=== PATIENT | female | born 1935 | race Caucasian/White ===

== ENCOUNTER → 2017-05-25 | Day surgery (SDC) | payer OTHER ==
[2017-05-19 08:13] VITALS: BMI 23.0
[~2017-05-25] VITALS: Ht 160 cm; Wt 60.5 kg
[~2017-05-25] MED LIST: AMIO200T4 PO; ASPCH81X PO; AZEL0.15 NAE; CHOL1000 PO; HYDR-4717 PO; HYDR25TA4 PO; LEVO50TA6 PO; LIDOCAINE HCL 2% 2 ML VIAL (20MG/ML) ONE; LRS10 PO; METO25TA56 PO; NTRGSL/4 UT; OFLO0.3D4 OT; POTA10CA28 PO; PRLSR20 PO; PROPOFOL IV EMULSION 10 MG/ML 20 ML VIAL IV ONE; PRVC/40 PO; SODIUM CHLORIDE 0.9% 500ML 500 ML IV ONE; SUCR5SUS PO
[2017-05-25 08:36] VITALS: Ht 160 cm; Wt 60.5 kg
--- NOTE | 2017-05-25 08:40 | Endo History and Physical ---
History & Physical Date of Service: May 25, 2017. Chief Complaint: Referring Physician: History of Present Illness Patient with chronic GERD on meds, here for EGD with Lechuga PH testing Past Medical History Atrial Fibrillation, Reflux, High Cholesterol, Heart Disease, Syncopal Episodes , Hypertension, Thyroid Disease, Kidney Disease Past Surgical History Hx Cardiac Surgery: Yes (HEART CATH/NO STENTS) Hx Internal Defibrillator: No Hx Pacemaker: No Hx Abdominal Surgery: Yes (HYSTERECTOMY ) Hx of Implantable Prosthesis: No Hx Post-Op Nausea and Vomiting: No Hx Cancer Surgery: No Hx Thoracic Surgery: No Hx Orthopedic: Yes (LUMBAR FUSION) Hx Urinary Tract Surgery: Yes (BLADDER TACK) Family History Esophogeal CA Social History Smoking Status: Former Smoker Hx Substance Use: No Hx Alcohol Use: Yes (RARE) Allergies Coded Allergies: Aminoglycosides (Verified Allergy, Mild, RASH, 05/19/17) Bacitracin (Verified Allergy, Mild, RASH, 05/19/17) Lisinopril (Verified Allergy, Mild, COUGH, 05/19/17) Neomycin (Verified Allergy, Mild, RASH, 05/19/17) Polymyxin B (Verified Allergy, Mild, RASH, 05/19/17) Sulfa Drugs (Verified Allergy, Unknown, RASH, 05/19/17) Current Medications Reported Home Medications Medications Dose Route/Sig Max Daily Dose Days Date Category Nitrostat (Nitroglycerin) 0.4 Mg Tab 0.4 Mg UT PRN PRN 05/19/17 Reported Astepro (Azelastine Hcl) 0.15 % Spr 2 [place] JOVANA DAILY PRN 05/19/17 Reported Floxin Otic (Ofloxacin (Otic)) 0.3 % Delvin 2 Drops OT BID PRN 05/19/17 Reported Carafate (Sucralfate) 1 Gm/10 Ml Susp 1 Gm PO QID PRN 05/19/17 Reported Vitamin D3 (Cholecalciferol) 1,000 Unit Tab 1 Tab PO QAM 05/19/17 Reported Micro-K Ext Rel (Potassium Chloride) 10 Meq Capcr 10 Meq PO BID 05/19/17 Reported Prilosec (Omeprazole) 20 Mg Capcr 20 Mg PO BID 05/19/17 Reported Levothyroxine Sodium 50 Mcg Tab 1 Tab PO QAM 05/19/17 Reported Hctz (Hydrochlorothiazide) 25 Mg Tab 25 Mg PO QAM 05/19/17 Reported Pravastatin Sodium (Pravastatin Sod) 40 Mg Tab 1 Tab PO QPM 05/19/17 Reported Lopressor (Metoprolol Tartrate) 25 Mg Tab 25 Mg PO BID 05/19/17 Reported Aspirin Chewable (Aspirin) 81 Mg Chew 81 Mg PO QAM 05/19/17 Reported Apresoline (Hydralazine Hcl) 50 Mg Tab 50 Mg PO BID 05/19/17 Reported Baclofen 10 Mg Tab 5 Mg PO BID 05/19/17 Reported Cordarone (Amiodarone Hcl) 200 Mg Tab 100 Mg PO QAM 05/19/17 Reported Vital Signs Weight (Kilograms): 60.45 Height (Feet): 5 Height (Inches): 3 Date Time Temp Pulse Resp B/P (MAP) Pulse Ox O2 Delivery O2 Flow Rate FiO2 05/25/17 08:36 36.0 57 20 153/85 (107) 97 Room Air Physical Exam General Appearance: no apparent distress Respiratory/Chest: Respiratory effort: no dyspnea, good air movement Cardiovascular: Heart Auscultation: RRR Abdomen: Inspection & Palpation: soft, non-distended, no tenderness, guarding & rebound Assessment and Plan Patient is for EGD with Lechuga. Patient was explained in details regarding the risk, benefit and alternatives and agreed.
--- NOTE | 2017-05-25 09:20 | Discharge Instructions ---
Endoscopy Patient Instructions Date / Procedure(s) Performed May 25, 2017. EGD Allergy Information Coded Allergies: Aminoglycosides (Verified Allergy, Mild, RASH, 05/19/17) Bacitracin (Verified Allergy, Mild, RASH, 05/19/17) Lisinopril (Verified Allergy, Mild, COUGH, 05/19/17) Neomycin (Verified Allergy, Mild, RASH, 05/19/17) Polymyxin B (Verified Allergy, Mild, RASH, 05/19/17) Sulfa Drugs (Verified Allergy, Unknown, RASH, 05/19/17) Discharge Date / Findings May 25, 2017. EGD showed normal esophagus, stomach and duodenum. Lechuga PH capsule successfully placed. Medication Instructions Reported Home Medications Medications Dose Route/Sig Max Daily Dose Days Date Category Nitrostat (Nitroglycerin) 0.4 Mg Tab 0.4 Mg UT PRN PRN 05/19/17 Reported Astepro (Azelastine Hcl) 0.15 % Spr 2 [place] JOVANA DAILY PRN 05/19/17 Reported Floxin Otic (Ofloxacin (Otic)) 0.3 % Delvin 2 Drops OT BID PRN 05/19/17 Reported Carafate (Sucralfate) 1 Gm/10 Ml Susp 1 Gm PO QID PRN 05/19/17 Reported Vitamin D3 (Cholecalciferol) 1,000 Unit Tab 1 Tab PO QAM 05/19/17 Reported Micro-K Ext Rel (Potassium Chloride) 10 Meq Capcr 10 Meq PO BID 05/19/17 Reported Prilosec (Omeprazole) 20 Mg Capcr 20 Mg PO BID 05/19/17 Reported Levothyroxine Sodium 50 Mcg Tab 1 Tab PO QAM 05/19/17 Reported Hctz (Hydrochlorothiazide) 25 Mg Tab 25 Mg PO QAM 05/19/17 Reported Pravastatin Sodium (Pravastatin Sod) 40 Mg Tab 1 Tab PO QPM 05/19/17 Reported Lopressor (Metoprolol Tartrate) 25 Mg Tab 25 Mg PO BID 05/19/17 Reported Aspirin Chewable (Aspirin) 81 Mg Chew 81 Mg PO QAM 05/19/17 Reported Apresoline (Hydralazine Hcl) 50 Mg Tab 50 Mg PO BID 05/19/17 Reported Baclofen 10 Mg Tab 5 Mg PO BID 05/19/17 Reported Cordarone (Amiodarone Hcl) 200 Mg Tab 100 Mg PO QAM 05/19/17 Reported Provider Instructions Activity Restrictions - No exercising or heavy lifting for 24 hours. - Do not drink alcohol the day of the procedure. - Do not drive a car or operate machinery until the day after the procedure. - Do not make any important decisions or sign important papers in 24 hours after the procedure. Following Day: - Return to full activity which may include returning to work/school. Diet Start your diet with liquids and light foods (jello, soup, juice, toast). Then eat your usual diet if not nauseated. Treatment For Common After Affects For mild abdominal pain, bloating, or excessive gas: - Rest - Eat lightly - Lie on right side Follow-Up Information Return the [employer] PH sales manager prearranged funerals as instructed. Follow-up with DR. SONNY ALONSO as scheduled Anesthesia Information What You Should Know You have had a procedure that required some medicine to reduce anxiety and discomfort. This treatment is called moderate sedation. After receiving the treatment, you may be sleepy, but you will be able to breathe on your own. The effects of the treatment may last for several hours. Follow these instructions along with Activity/Diet recommendations noted above: * Do NOT do anything where dizziness or clumsiness would be dangerous. * Rest quietly at home today, then you can be up and about tomorrow. * Have a responsible person stay with you the rest of today. * You may have had an I.V. today. If so, you may take the dressing off later today. Recommendations Call your doctor if: * Trouble breathing * Continuous vomiting for more than 24 hours * Temperature above 101 degrees * Severe abdominal pain or bloating * Pain not relieved by pain medicine ordered * There is increased drainage or redness from any incision * A large amount of rectal bleeding greater than 2-3 tablespoons. (If you had a polyp/s removed or have hemorrhoids, a small amount of blood - from the rectum is to be expected.) * You have any unanswered questions or concerns. IN THE EVENT OF A SERIOUS EMERGENCY, GO TO THE NEAREST EMERGENCY ROOM Your discharge instructions were prepared by provider Gordy Hewitt. Patient Instructions Signature Page Cathie Lozano Patient (or Guardian) Signature/Date: I have read and understand the instructions given to me by my caregivers. Caregiver/RN/Doctor Signature/Date: The above-named patient and/or guardian has received patient instructions on this date. + Original Patient Signature Page (only) stays with chart. Please make copy for patient.
--- NOTE | 2017-05-25 09:28 | GI REPORT ---
Procedure Date: 05/25/2017 8:56 AM Procedure: Upper GI endoscopy Indications: Heartburn, Follow-up of gastro-esophageal reflux disease Medicines: Monitored Anesthesia Care Complications: No immediate complications. Estimated Blood Loss: Estimated blood loss: none. Procedure: Pre-Anesthesia Assessment: - Prior to the procedure, a History and Physical was performed, and patient medications and allergies were reviewed. The patient is competent. The risks and benefits of the procedure and the sedation options and risks were discussed with the patient. All questions were answered and informed consent was obtained. Patient identification and proposed procedure were verified by the physician and the nurse in the procedure room. Mental Status Examination: alert and oriented. Airway Examination: normal oropharyngeal airway and neck mobility. Respiratory Examination: clear to auscultation. CV Examination: normal. ASA Grade Assessment: II - A patient with mild systemic disease. After reviewing the risks and benefits, the patient was deemed in satisfactory condition to undergo the procedure. The anesthesia plan was to use monitored anesthesia care (MAC). Immediately prior to administration of medications, the patient was re-assessed for adequacy to receive sedatives. The heart rate, respiratory rate, oxygen saturations, blood pressure, adequacy of pulmonary ventilation, and response to care were monitored throughout the procedure. The physical status of the patient was re-assessed after the procedure. After obtaining informed consent, the endoscope was passed under direct vision. Throughout the procedure, the patient's blood pressure, pulse, and oxygen saturations were monitored continuously. The Scope was introduced through the mouth, and advanced to the second part of duodenum. The upper GI endoscopy was accomplished without difficulty. The patient tolerated the procedure well. Findings: The examined esophagus was normal. The MÉNDEZ capsule with delivery system was introduced through the mouth and advanced into the esophagus, such that the MÉNDEZ pH capsule was positioned 34 cm from the incisors, which was 6 cm proximal to the EG junction. Suction was applied to the well of the MÉNDEZ pH capsule to suck in the adjacent mucosa of the esophagus using the external vacuum pump set at a minimum vacuum pressure of 550 mmHg for 30 seconds. The MÉNDEZ pH capsule was then deployed by depressing the plunger on top of the handle to advance the locking pin into the mucosa, thereby attaching the capsule to the esophagus. The plunger was then rotated a quarter turn clockwise to release the capsule from the delivery system. The delivery system was then withdrawn. Endoscopy was utilized for probe placement and diagnostic evaluation. (Study done on PPI meds). The entire examined stomach was normal. The duodenal bulb and 2nd part of the duodenum were normal. Impression: - Normal esophagus. - The MÉNDEZ pH capsule was positioned 34 cm from the naris, which was 6 cm proximal to the EG junction. - Normal stomach. - Normal duodenal bulb and 2nd part of the duodenum. - No specimens collected. Recommendation: - Discharge patient to home. - Continue present medications. - Return the [facility] PH reciever to GI lab as previously instructed. - Return to GI clinic as previously scheduled. Gordy Hewitt MD 05/25/2017 9:27:43 AM This report has been signed electronically. Note Initiated On: 05/25/2017 8:56 AM I attest to the content of the Intraoperative Record and orders documented therein, exceptions below
[2017-05-25 09:54] VITALS: BP 158/87; PULSE 58; O2SAT 98
--- NOTE | 2017-05-25 10:12 | Anesthesiology Progress Note ---
Anesthesia Post Op Note Date & Time May 25, 2017 at 10:12 Vital Signs Pain Intensity: 0 Vital Signs Past 12 Hours Date Time Temp Pulse Resp B/P (MAP) Pulse Ox O2 Delivery O2 Flow Rate FiO2 05/25/17 09:54 58 18 158/87 (110) 98 Room Air 05/25/17 09:39 55 18 162/86 (111) 96 Room Air 05/25/17 09:24 53 16 124/69 (87) 96 Room Air 05/25/17 08:36 36.0 57 20 153/85 (107) 97 Room Air Notes Mental Status: alert / awake / arousable, participated in evaluation Pt Amnestic to Procedure: Yes Nausea / Vomiting: adequately controlled Pain: adequately controlled Airway Patency, RR, SpO2: stable & adequate BP & HR: stable & adequate Hydration State: stable & adequate Anesthetic Complications: no major complications apparent
== END | disposition home or self-care (01) ==
LOC: C.GI 08:19
PROVIDERS: ATTEND Student in an Organized Health Care Education/Training Program
DX: K21.9 Gastro-esophageal reflux disease without esophagitis (principal); I48.91 Unspecified atrial fibrillation; I10 Essential (primary) hypertension; E78.00 Pure hypercholesterolemia, unspecified; I51.9 Heart disease, unspecified; E07.9 Disorder of thyroid, unspecified; N28.9 Disorder of kidney and ureter, unspecified; Z87.891 Personal history of nicotine dependence; Z80.0 Family history of malignant neoplasm of digestive organs; Z79.82 Long term (current) use of aspirin; Z79.899 Other long term (current) drug therapy